=== PATIENT | female | born 1965 | race Two or more races ===

== ENCOUNTER 2018-08-17 10:34 | Outpatient (CLI) | payer OTHER | END 2018-08-17 10:36 | disposition home or self-care (01) | LOC: SONOGRAMA 10:34 | DX: R10.2 Pelvic and perineal pain (principal) ==

== ENCOUNTER 2019-06-16 10:49 | Outpatient (CLI) | payer OTHER | END 2019-06-16 10:57 | disposition home or self-care (01) | LOC: MAMO-SONO 10:49 | DX: N60.11 Diffuse cystic mastopathy of right breast (principal) ==

== ENCOUNTER 2020-12-07 09:03 | Outpatient (CLI) | payer OTHER | END 2020-12-07 09:26 | disposition home or self-care (01) | LOC: MAMO-SONO 09:03 | PROVIDERS: ATTEND Obstetrics & Gynecology | DX: Z12.31 Encounter for screening mammogram for malignant neoplasm of breast (principal); N60.11 Diffuse cystic mastopathy of right breast ==

== ENCOUNTER 2021-01-31 10:14 | Day surgery (SDC) | payer OTHER | END 2021-01-31 14:15 | disposition home or self-care (01) | LOC: AMB-ENDOS 10:14 | PROVIDERS: ATTEND Surgery | DX: K62.89 Other specified diseases of anus and rectum (principal); Z20.822 Contact with and (suspected) exposure to COVID-19; Z12.11 Encounter for screening for malignant neoplasm of colon ==